=== PATIENT | male | born 1955 ===

== ENCOUNTER 2023-11-17 07:00 | Inpatient (IN) | payer OTHER ==
[2023-11-17] MEDS ORDERED: AVODART0.5 MG PO (08:34)
[2023-11-17] MEDS ORDERED: TADALAFIL5 MG PO (08:35)
[2023-11-17] MEDS ORDERED: TAMS0.4C PO (08:35)
[2023-11-17] MEDS ORDERED: CRESTOR10 MG PO (08:35)
[2023-12-01] MEDS ORDERED: ENOXAPARIN SODIUM 40 MG/0.4 ML SYRINGE SUBCUTANEO ONE ×2 (06:41→08:45)
[2023-12-01] MEDS ORDERED: CEFAZOLIN SODIUM 1,000 MG VIAL ONE ×2 (06:41→16:53)
[2023-12-01] MEDS ORDERED: CEFAZOLIN SODIUM 1,000 MG in 0.9 % SODIUM CHLORIDE 50 ML IV ONE (08:45)
[2023-12-01] MEDS ORDERED: SUGAMMADEX SODIUM 200 MG/2 ML VIAL IV ONE ×2 (11:57→12:00)
[2023-12-01] MEDS ORDERED: DEXTROSE 5 %-0.45 % SOD CHLORD 1,000 ML IV SCH (12:02)
[2023-12-01] MEDS ORDERED: ONDANSETRON HCL 2 MG/ML VIAL IV PRN (12:15)
[2023-12-01] MEDS ORDERED: MORPHINE SULFATE 2 MG/ML CARTRIDGE IV PRN (12:15)
[2023-12-01] MEDS ORDERED: ALBUMIN HUMAN 100 ML VIAL IV STA (12:37)
[2023-12-01] MEDS ORDERED: SIMETHICONE 125 MG CAPSULE PO SCH (13:00)
[2023-12-01 14:58] LABS: HEMATOCRIT 31.5 % (39.0-48.0); HEMOGLOBIN 10.6 g/dL (13-16.00); MEAN CELL VOLUME 83.8 fL (80.0-100.00); MEAN CORPUSCULAR HEMOGLOBIN 28.3 pg (27.00-32.0); MEAN CORPUSCULAR HGB CONC 33.8 g/dl (32.0-36.0); PLATELET COUNT 284 K/uL (150-450); RED BLOOD COUNT 3.76 M/uL (4.00-6.00); RED CELL DISTRIBUTION WIDTH 14.2 % (11.5-14.5)
[2023-12-01] MEDS ORDERED: ERTAPENEM SODIUM 1,000 MG VIAL IV STA (15:28)
[2023-12-01 15:40] LABS: CREATININE SERUM 0.8 mg/dL (0.70-1.30); GFR 96.13; POTASSIUM 4.82 mEq/L (3.5-5.1)
[2023-12-01] MEDS ORDERED: FAMOTIDINE/PF 20 MG/2 ML VIAL ONE (16:53)
[2023-12-01] MEDS ORDERED: DOCUSATE SODIUM 100MG CAP PO SCH (17:00)
[2023-12-01] MEDS ORDERED: FAMOtidine 20 MG TABLET PO SCH (17:00)
[2023-12-01] MEDS ORDERED: CEFAZOLIN SODIUM 1,000 MG VIAL IV SCH (17:00)
[2023-12-01] MEDS ORDERED: ACETAMINOPHEN WITH CODEINE 1 UDTAB TABLET PO PRN (22:00)
[2023-12-02 07:52] LABS: CALCIUM 7.8 mg/dL (8.5-10.1); CREATININE SERUM 0.74 mg/dL (0.70-1.30); GFR 105.18; POTASSIUM 4.15 mEq/L (3.5-5.1)
[2023-12-02 07:58] LABS: HEMATOCRIT 27.8 % (39.0-48.0); HEMOGLOBIN 9.8 g/dL (13-16.00); MEAN CORPUSCULAR HEMOGLOBIN 29.2 pg (27.00-32.0); MEAN CORPUSCULAR HGB CONC 35.2 g/dl (32.0-36.0); PLATELET COUNT 217 K/uL (150-450); RED BLOOD COUNT 3.35 M/uL (4.00-6.00); RED CELL DISTRIBUTION WIDTH 14.2 % (11.5-14.5)
[2023-12-02] MEDS ORDERED: ENOXAPARIN SODIUM 40 MG/0.4 ML SYRINGE SUBCUTANEO SCH (09:00)
[2023-12-02] MEDS ORDERED: GENTAMICIN SULFATE 40 MG/ML VIAL IV SCH (09:30)
[2023-12-02] MEDS ORDERED: GENTAMICIN SULFATE 2.5 MG/ML (Adulto) IV SCH (13:00)
[2023-12-02] MEDS ORDERED: FLUDROCORTISONE ACETATE 0.1 MG TABLET PO STA (15:40)
[2023-12-03] MEDS ORDERED: GENTAMICIN SULFATE 2.5 MG/ML (Adulto) IV SCH (09:00)
[2023-12-06 05:06] LABS: hav igm Negative (Negative); hcv Non Reactive (Non Reactive); hep b c Negative (Negative)
== END 2023-12-03 16:51 | disposition home or self-care (01) | DRG 708 ==
LOC: SURH 12-01 05:15 → O/R 12-01 05:15 → SURH 12-01 07:00
PROVIDERS: ADMIT Urology; ATTEND Urology
PROC: 07BC0ZX Excision of Pelvis Lymphatic, Open Approach, Diagnostic (ICD-10-PCS; 2023-12-01)
PROC: 0VT00ZZ Resection of Prostate, Open Approach (ICD-10-PCS; principal; 2023-12-01 07:00)
DX: C61 Malignant neoplasm of prostate (principal); N40.1 Benign prostatic hyperplasia with lower urinary tract symptoms; R33.9 Retention of urine, unspecified